=== PATIENT | male | born 1945 | race Caucasian/White ===

== ENCOUNTER 2018-07-17 06:15 | Day surgery (SDC) | payer BC ==
[~2018-07-17] VITALS: Ht 182.9 cm; Wt 103.9 kg
[~2018-07-17 06:15] MED LIST: ATORVASTATIN CA20 MG PO; CALCIUM 500 +1 EAC2 PO; FISH OIL 1,0001 EAC7 PO; VENLAFAXINE HCL75 M2 PO; VITAMIN C500 MG PO; VITAMIN E1000 UNI2 PO
[2018-07-17] MEDS ORDERED: MULTI VITAMIN1 EACH PO (06:36)
--- NOTE | 2018-07-17 08:18 | NUR ---
07/17/18 0818 Afia Bennett 0800-PATIENT ARRIVED TO PACU ON 3L NC PLACED ON 2L RR EVEN. PATIENT REACTIVE TO VERBAL AND TACTILE STIMULI SLIGHTLY OPENING EYES VERY DROWYS BACK TO SLEEP. PASSING GAS.
--- NOTE | 2018-07-17 11:24 | OR ---
[facility] [address] [place], [place] [address] Signed DATE OF OPERATION: 07/17/2018 SURGEON: Natasha Luther MD PREOPERATIVE DIAGNOSES: 1. Personal history of colonic polyps. 2. Diverticulosis. 3. Internal hemorrhoids. POSTOPERATIVE DIAGNOSES: 1. A 4 mm cecal polyp at 10 cm. 2. A 5 mm polyps x2 at 45 cm. 3. Minimal to moderate sigmoid diverticulosis. 4. Moderate internal hemorrhoids. 5. Enlarged indurated prostate (left greater than right). PROCEDURE: Colonoscopy with hot biopsy. ESTIMATED BLOOD LOSS: None. INDICATIONS: Andrew is a 73-year-old gentleman who has a personal history of colonic polyps removed in 2007 and 2013. He is returning for a followup colonoscopy. He also mentioned diverticulosis in the sigmoid colon. He is also describing a grade 2 internal hemorrhoid. In addition, he has had three urinary tract infections and has yet to see a urologist. I told him that is very unusual and he seriously should consider seeing a urologist. In addition, today we can see that his prostate is enlarged and indurated and the left slightly larger than the right. He told me with bowel movements, he feels like he has a hemorrhoid that pops out, but otherwise his bowel movements seems to be fine. There is no family history of colon cancer or polyps. In the office, I had given him a pamphlet on colonoscopy and we looked at that together along with the risks including, but not limited to gas, bloating, crampy abdominal pain, bleeding, perforation, requiring surgery, and missed diagnosis. We also discussed the need for IV conscious sedation. He had expressed understanding and wished to proceed. PROCEDURE NOTE: Andrew was taken into our endoscopy suite and placed in the left lateral decubitus position. He was given IV sedation with 8 mg of Versed and 150 mcg of fentanyl. A Electronically Signed By: NATASHA LUTHER MD 07/17/18 1124 PATIENT NAME: ANDREW BERNAL OPERATIVE REPORT DATE OF : 45 REPORT #: [id number] PHYSICIAN: NATASHA LUTHER MD PCP: INES SCHMIDT REPORT IS CONFIDENTIAL AND NOT TO BE RELEASED WITHOUT AUTHORIZATION [facility] [address] [place], [place] [address] Signed digital rectal exam was performed and he did have some small external hemorrhoids. His prostate is enlarged and the left is certainly more prominent than the right. The adult colonoscope was then inserted and advanced all around into the cecum under direct visualization of camera without difficulty. We did use a little extra sedation and some abdominal compression in order to advance the scope. His prep was good. We took pictures throughout for photodocumentation. The scope was slowly withdrawn. He had a small polyp at the base of the cecum, probably 4 mm at most. The scope was then withdrawn and the remaining polyps were easily removed with the help of hot biopsy forceps. He does have moderate sigmoid diverticulosis. Once in the rectum, the scope had been retroflexed and he does have moderate internal hemorrhoid columns, one of which is a little irritated. I am sure that is the one that pops in and out. After this, the gas was suctioned out and the colonoscope removed. Andrew tolerated the procedure quite well. RECOMMENDATIONS: Andrew will follow up in my office in 7 to 14 days to review his results. It looks like he will stay on the 5-year rotation. Natasha Luther MD [facility]/MODL /[id number] cc: Rupert Shanks MD [place], [place] Natasha Luther MD Copies: NATASHA LUTHER MD ~ Electronically Signed By: NATASHA LUTHER MD 07/17/18 1124 PATIENT NAME: ANDREW BERNAL OPERATIVE REPORT DATE OF : 45 REPORT #: [id number] PHYSICIAN: NATASHA LUTHER MD PCP: INES SCHMIDT REPORT IS CONFIDENTIAL AND NOT TO BE RELEASED WITHOUT AUTHORIZATION
--- NOTE | 2018-07-17 12:15 | NUR ---
PT SITTIN UPRIGHT IN BED, AT SIDE. HE SEEMS ALITTLE UNCOMFORTABLE WITH MY PRESENCE, SAID HE IS DOING WELL. EXTENDED A BLESSING, WILL FOLLOW NEEDED
== END 2018-07-17 09:20 | disposition home or self-care (01) ==
LOC: OPS 06:15 → DS 06:15 → OPS 06:45 → DS 08-14 08:15
PROVIDERS: Colon & Rectal Surgery
PROC: 0DBE8ZX Excision of Large Intestine, Via Natural or Artificial Opening Endoscopic, Diagnostic (ICD-10-PCS; 2018-07-17)
PROC: 0DBH8ZX Excision of Cecum, Via Natural or Artificial Opening Endoscopic, Diagnostic (ICD-10-PCS; principal; 2018-07-17 06:45)
DX: Z12.11 Encounter for screening for malignant neoplasm of colon (principal); D12.0 Benign neoplasm of cecum; D12.6 Benign neoplasm of colon, unspecified; K57.30 Diverticulosis of large intestine without perforation or abscess without bleeding; K64.8 Other hemorrhoids; N40.0 Benign prostatic hyperplasia without lower urinary tract symptoms; F32.9 Major depressive disorder, single episode, unspecified; E78.5 Hyperlipidemia, unspecified; D72.819 Decreased white blood cell count, unspecified; Z79.899 Other long term (current) drug therapy; Z79.52 Long term (current) use of systemic steroids
CPT/HCPCS: 99153; G0500; J2250; J3010; J7120

== ENCOUNTER 2024-07-09 07:22 | Day surgery (SDC) | payer BC ==
[~2024-07-09] VITALS: Ht 182.9 cm; Wt 96.4 kg
[~2024-07-09 07:22] MED LIST changes: +IBLOOD GLUCOSE TEST STRIP 1 EA TEST VI PRN; +LACTATED RINGER'S 1,000 ML IV SCH; +LIDOCAINE HCL 1% 5 ML SDV INJ ONE; +MIDAZOLAM HCL 5 MG/5 ML VIAL IV PRN; +MULTI VITAMIN1 EACH PO; +NORCO 10-325 T1 EACH PO; +fentaNYL citrate 100 MCG/2 ML VIAL IV PRN
[2024-07-09 07:39] VITALS: BP 107/76
--- NOTE | 2024-07-09 07:55 | NUR ---
GOING TO [place] WILL RETURN. PT COMFORTABLE.
[2024-07-09] MEDS ORDERED: fentaNYL citrate 100 MCG/2 ML VIAL ONE (08:01)
[2024-07-09] MEDS ORDERED: MIDAZOLAM HCL 5 MG/5 ML VIAL ONE (08:01)
--- NOTE | 2024-07-09 08:56 | NUR ---
07/09/24 0856 Shirley Leyva 0847 PT ARRIVED TO PACU ON 4L VIA NC, PT ASLEEP AND RESP EVEN AND UNLABORED. VSS. 0848 PT WOKE TO O2 TURNED OFF, PT REORIENTED TO PACU AND ENCOURAGED TO PASS GAS NEEDED. PT RESTING AND WAKES OFF AND ON WITHOUT STIMULI.
[2024-07-09 09:23] VITALS: BP 116/74
--- NOTE | 2024-07-09 09:42 | OR ---
[facility] [address] [place], [place] [address] Signed DATE OF OPERATION: 07/09/2024 SURGEON: Natasha Luther MD PREOPERATIVE DIAGNOSES: 1. Personal history of colonic polyps in 2008, 2013 and 2019. 2. Diverticulosis. 3. Internal hemorrhoids. POSTOPERATIVE DIAGNOSES: 1. 5 mm polyp at 60 cm in left colon. 2. Minimal to moderate pandiverticulosis. 3. Minimal to moderate internal hemorrhoids. PROCEDURE: Colonoscopy with hot biopsy. ESTIMATED BLOOD LOSS: None. 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 He stays in shape by working in his yard, walking every day and cutting firewood. His heart rate is always a bit slow. More recently, he has been dizzy a couple of times, I guess he is headed for evaluation with a hair designer. He had a colonoscopy in 2007 and in 2013 in [place], [place]. He had adenomatous polyps removed both times. He is known to have internal hemorrhoids along with diverticulosis. I helped him in 2019 at age of 73 with a colonoscopy. He had three tubular adenomatous polyps removed. All were less than 5 mm in diameter. Again, he has diverticulosis along with internal hemorrhoids. He had used 8 mg of Versed and 150 mcg of fentanyl. Now that his [id number] was he said the stress for himself and his has reduced significantly. He said there is no family history of colon cancer or polyps. Overall, he says he is doing well. In the office, I gave him a pamphlet on colonoscopy. He recalls the nature of the test. There is risk including, but not limited to gas bloating, crampy abdominal pain, bleeding, perforation requiring surgery and missed diagnosis. He has used bowel prep previously involving Dulcolax tablets and 1/2 gallon of polyethylene glycol. However, on this occasion, he could use another 32 ounces or even 64 ounces of polyethylene glycol. We also discussed the need for the IV conscious sedation. He had used 8 mg of Versed and 150 mcg of fentanyl in the past. He had expressed understanding and wished to proceed. He said his would take him home afterwards. Electronically Signed By: NATASHA LUTHER MD 07/09/24 0942 PATIENT NAME: ANDREW BERNAL JR OPERATIVE REPORT DATE OF : 45 REPORT #: [id number] PHYSICIAN: NATASHA LUTHER MD PCP: CINTHYA WEST MD REPORT IS CONFIDENTIAL AND NOT TO BE RELEASED WITHOUT AUTHORIZATION [facility] [address] [place], [place] [address] Signed DESCRIPTION OF PROCEDURE: Andrew was taken into our endoscopy suite, placed in the left lateral decubitus position. He was given IV sedation with 4 mg of Versed and 100 mcg of fentanyl. A digital rectal exam was performed. His prostate was enlarged and he has a fairly firm nodule on the right. He might review that with his primary care provider. Really not much in the way of any external hemorrhoids. He had good sphincter tone. The adult colonoscope was introduced and advanced under direct visualization of camera. We had several areas of liquid particulate stool matter. Most of that was irrigated and suctioned out. Eventually, we made it around into the cecum with a little extra sedation and abdominal compression. The scope had been slowly withdrawn. We could easily see the appendiceal orifice and ileocecal valve. Back at 60 cm in left colon he did have a 5 mm sessile polyp. This was easily removed with the help of hot biopsy forceps. We did see diverticula throughout the entire colon. They are moderate size, minimal to moderate in number and scattered about. Once in the rectum, the scope was retroflexed and he does have minimal to moderate internal hemorrhoid columns. After this, the gas was suctioned out, colonoscope removed. Andrew tolerated the procedure quite well. RECOMMENDATIONS: I will see Andrew back in my office in 7 to 14 days to review his results. He might review his prostate exam with his primary care provider. He might consider a full gallon of polyethylene glycol for future colonoscopies. Natasha Luther MD [facility]/MODL /[id number] cc: MD Cinthya Patterson MD Copies: NATASHA LUTHER MD Electronically Signed By: NATASHA LUTHER MD 07/09/24 0942 PATIENT NAME: ANDREW BERNAL JR OPERATIVE REPORT DATE OF : 45 REPORT #: [id number] PHYSICIAN: NATASHA LUTHER MD PCP: CINTHYA WEST MD REPORT IS CONFIDENTIAL AND NOT TO BE RELEASED WITHOUT AUTHORIZATION [address] [address] Signed CINTHYA WEST DMD ~ Electronically Signed By: NATASHA LUTHER MD 07/09/24 0942 PATIENT NAME: ANDREW BERNAL OPERATIVE REPORT DATE OF : 45 REPORT #: [id number] PHYSICIAN: NATASHA LUTHER MD PCP: CINTHYA WEST MD REPORT IS CONFIDENTIAL AND NOT TO BE RELEASED WITHOUT AUTHORIZATION
--- NOTE | 2024-07-12 11:02 | PATH ---
[facility] [address] [facility] [place], [place] [address] Signed SPECIMEN(S): A LEFT DESCENDING POLYP SPECIMEN SOURCE: A. LEFT DESCENDING POLYP CLINICAL HISTORY: History of polyps. Post: Polyp 60 cm "illegible word "colon. FINAL PATHOLOGIC DIAGNOSIS: Colon, left descending, polypectomy: - Tubular adenoma BRP MICROSCOPIC EXAMINATION: Histologic sections of all submitted blocks are examined by light microscopy. These findings, together with the gross examination, support the pathologic diagnosis. GROSS DESCRIPTION: The specimen, labeled and designated "Stone, E, left descending polyp," is received in formalin and consists of two cochran soft tissue fragments, ranging from 0.3-0.4 cm. Entirely submitted in (A1). AB (under the direct supervision of a pathologist) The Gross Description was prepared using a voice recognition system. The report was reviewed for accuracy; however, sound-alike word errors, addition and/or deletions may occur. If there is any question about this report, please contact Client Services. ADDITIONAL NOTES: Immunohistochemical and/or in situ hybridization studies if performed in this case included appropriate positive controls that reacted as expected. This test was developed and its performance characteristics determined by [facility]. It has not been cleared or approved by the U.S. Food and Drug Administration. The FDA has determined that such clearance or approval is not necessary. This test is used for clinical purposes. It should not be regarded as investigational or for research. [facility] is certified under the Clinical Laboratory Improvement Amendments of 1988 (CLIA) as qualified to perform high complexity clinical laboratory testing. PATIENT NAME: ANDREW BERNAL JR PATHOLOGY DATE OF : 45 REPORT #: [id number] PHYSICIAN: KARINA FRAUSTO PCP: CINTHYA WEST MD REPORT IS CONFIDENTIAL AND NOT TO BE RELEASED WITHOUT AUTHORIZATION [facility] [address] [facility] [place], [place] [address] Signed PERFORMING LABORATORY: Technical component was performed by [facility], [address] [place] [address] (CLIA# [id number]). Professional interpretation was performed by [facility], [address] [place] [address] (CLIA#: [id number]). Diagnostician: Eleno Lara MD Pathologist Electronically Signed 07/12/2024 Copies: ~ PATIENT NAME: ANDREW BERNAL JR PATHOLOGY DATE OF : 45 REPORT #: [id number] PHYSICIAN: KARINA FRAUSTO PCP: CINTHYA WEST MD REPORT IS CONFIDENTIAL AND NOT TO BE RELEASED WITHOUT AUTHORIZATION
== END 2024-07-09 09:39 | disposition home or self-care (01) ==
LOC: DS 07:22
PROVIDERS: ATTEND Colon & Rectal Surgery
PROC: 0DBG8ZX Excision of Left Large Intestine, Via Natural or Artificial Opening Endoscopic, Diagnostic (ICD-10-PCS; principal; 2024-07-09 08:15)
DX: D12.6 Benign neoplasm of colon, unspecified (principal); K57.30 Diverticulosis of large intestine without perforation or abscess without bleeding; K64.8 Other hemorrhoids; N40.0 Benign prostatic hyperplasia without lower urinary tract symptoms
CPT/HCPCS: 99153; G0500; J2250; J3010; J7121